=== PATIENT | male | born 1955 | race Caucasian/White ===

== ENCOUNTER → 2019-08-10 10:25 | Outpatient (CLI) | payer OTHER, MEDICARE, SELFPAY ==
--- NOTE | 2019-08-10 10:30 | CA_ITS ---
APPROVED REPORT EXAM: Comprehensive 2D, Doppler, and color-flow Echocardiogram Second Baller: Sharlene Wilcox RT(R) Ht: 6 ft 1 in Wt: 220lbs BSA: 2.24 BP: 136/76 mmHg Indications: Pre-Op Clearance, Aortic Valve Disease, Shortness of Breath, Hyperlipidemia, Cardiomyopathy, Hypertension/HDD, EDEMA, 2D Dimensions LVOT 1.92 cm (M/F) 1.5-2.5 M-Mode Dimensions RVDd 2.41 cm (0.9-2.6) LVDd 5.55 cm (3.5-5.7) LVDs 4.43 cm (3.5-5.7) IVSd 1.21 cm (0.6-1.1) PWd 1.13 cm (0.6-1.1) EF (Teich) 40.80% FS 20.20% EDV (Teich) 150.50 mL ESV (Teich) 89.10 mL LV Diastology E/A Ratio 0.69 Aortic Valve LVOT Max 78.00 (70-110 cm/s) LVOT VTI 15.46 cm Mitral Valve MV A Velocity 83.00 (40-130 cm/s) Left Ventricle Left atrium is mildly enlarged, left ventricle is normal size, mild concentric left ventricular hypertrophy, visually estimated ejection fraction 55% with no regional wall motion grade 1 diastolic dysfunction seen without tissue Doppler evidence of raise left atrial pressure. Right Ventricle Right atrium and right ventricular normal size and contractility. Aortic Valve Aortic valve is minimally thickened and fibrosed. Leaflet continue to display mobility, aortic outflow velocities within normal range, there is no aortic stenosis or aortic insufficiency. Mitral Valve Mitral valve is grossly normal, there is mild mitral regurgitation. Tricuspid Valve Tricuspid valve is grossly normal, there is mild tricuspid regurgitation, tricuspid regurgitation jet velocity is inadequate for calculation of the right ventricular systolic pressure. Pulmonic Valve Pulmonic valve is poorly visualized. Great Vessels Aortic root is normal size. Pericardium No significant pericardial effusion noted. Conclusion 1. Mildly enlarged left atrium, normal left ventricular size, mild concentric left ventricular hypertrophy, visually estimated ejection fraction 55% with no regional wall motion abnormality, diastolic parameters are inconclusive. 2. Thickened and calcified aortic valve without Doppler evidence of aortic stenosis. 3. Mild mitral and tricuspid regurgitation 4. No significant pericardial effusion noted. Electronically signed by : Petey Babin, 08/10/2019 21:18:44
== END ==
PROVIDERS: PCP Family Medicine; Visit Provider Nurse Practitioner Family
DX: I25.10 Atherosclerotic heart disease of native coronary artery without angina pectoris (principal); I11.0 Hypertensive heart disease with heart failure; E78.49 Other hyperlipidemia
CPT/HCPCS: 93306

== ENCOUNTER → 2020-01-07 13:34 | Outpatient (CLI) | payer BC, MEDICARE, SELFPAY ==
[2020-01-07 14:02] LABS: Alanine Aminotransferase 14 U/L (12-78); Albumin Level 4.2 g/dl (3.5-5.0); Albumin/Globulin Ratio 1.4 (1.1-1.8); Alkaline Phosphatase 64 U/L (38-126); Anion Gap 13.7 mEq/L (5-15); Aspartate Amino Transferase 38 U/L (17-59); Bilirubin,Total 0.3 mg/dl (0.2-1.3); Blood Urea Nitrogen 9 mg/dl (9-20); Calcium 9.4 mg/dl (8.4-10.2); Carbon Dioxide 27 mmol/L (22.0-30.0); Chloride 96 mmol/L (98-107); Chol/HDL Ratio 1.7 (1-3.5); Cholesterol 186 mg/dl (140-200); Estimated Glomerular Filt Rate 113 ml/min (>60); GFR (African American) 137 ML/MIN (>60); Glucose 84 mg/dl (74-100); HDL Cholesterol 107 mg/dl (40-60); Potassium 4.7 mmoL/L (3.5-5.1); Sodium 132 mmol/L (136-145); Total Protein,Serum 7.2 g/dl (6.3-8.2); Triglycerides 89 mg/dl (30-150); VLDL Cholesterol 18 mg/dL (0-40)
[2020-01-07 14:13] LABS: Direct LDL Cholesterol 64.46 mg/dL (100-129)
[2020-01-07 14:18] LABS: Basophils % 0.3 % (0.1-2.0); Eosinophils % 0.6 % (0.1-12.0); Hematocrit 40.5 % (42.0-52.0); Hemoglobin 13.4 g/dL (14.1-18.0); Lymphocytes # 1.1 K/mm3 (0.7-4.5); Lymphocytes % 18.9 % (10-50); Mean Corpuscular HGB Conc 33.2 g/dL (31.8-35.4); Mean Corpuscular Hemoglobin 30.1 pg (27.0-31.2); Mean Corpuscular Volume 90.8 fl (80-94); Mean Platelet Volume 7.8 fl (7.4-10.4); Monocytes # 0.3 K/mm3 (0.1-1.0); Neutrophils # 4.4 K/mm3 (1.8-7.8); Neutrophils % 75.2 % (37.0-80.0); Platelet Count 288 K/mm3 (142-424); Red Blood Count 4.47 M/mm3 (4.60-6.20); Red Cell Distribution Width 14.7 % (11.5-17.5); White Blood Count 5.8 K/mm3 (4.8-10.8)
== END ==
PROVIDERS: Visit Provider Family Medicine
DX: Z01.818 Encounter for other preprocedural examination (principal)
CPT/HCPCS: 80053; 80061; 85025

== ENCOUNTER → 2021-03-12 17:57 | Outpatient (CLI) | payer OTHER, MEDICARE, SELFPAY ==
[2021-03-12 19:22] LABS: Alanine Aminotransferase 12 U/L (12-78); Albumin Level 4.5 g/dl (3.5-5.0); Albumin/Globulin Ratio 1.4 (1.1-1.8); Alkaline Phosphatase 51 U/L (38-126); Anion Gap 14.6 mEq/L (5-15); Aspartate Amino Transferase 28 U/L (17-59); Bilirubin,Total 0.5 mg/dl (0.2-1.3); Blood Urea Nitrogen 10 mg/dl (9-20); Carbon Dioxide 23 mmol/L (22.0-30.0); Chloride 105 mmol/L (98-107); Estimated Glomerular Filt Rate 112 ml/min (>60); GFR (African American) 136 ML/MIN (>60); Globulin 3.3 g/dL (1.3-3.2); Glucose 74 mg/dl (74-100); Potassium 4.6 mmoL/L (3.5-5.1); Sodium 138 mmol/L (136-145); Total Protein,Serum 7.8 g/dl (6.3-8.2)
[2021-03-17 03:38] LABS: Testosterone, Total, LC/MS 554.7 ng/dL (264.0-916.0); Testosterone,Free 5.3 pg/mL (6.6-18.1)
== END ==
PROVIDERS: Visit Provider Family Medicine
DX: I10 Essential (primary) hypertension (principal); I48.91 Unspecified atrial fibrillation; E29.1 Testicular hypofunction; Z87.891 Personal history of nicotine dependence
CPT/HCPCS: 80053; 84402; 84403; 84443

== ENCOUNTER → 2021-08-07 09:59 | Outpatient (POV) | payer OTHER, MEDICARE, SELFPAY ==
[2021-08-07 10:29] VITALS: BP 158/89; PULSE 61; RESP 20; TEMP 36.7; O2SAT 98
--- NOTE | 2021-08-07 11:32 | HMH.PMCON ---
Assessment and Plan (1) Degenerative joint disease (DJD) of lumbar spine Status: Chronic Category: Medical Code(s): M47.816 - Spondylosis without myelopathy or radiculopathy, lumbar region (2) Lumbar radiculopathy Status: Chronic Category: Medical Code(s): M54.16 - Radiculopathy, lumbar region (3) Postlaminectomy syndrome of lumbar region Status: Chronic Category: Medical Code(s): M96.1 - Postlaminectomy syndrome, not elsewhere classified - Assessment and plan all Dx Assessment and Plan for all problems:: Patient was referred to us by Dr. Llamas office. He has had lumbar fusion with Dr. Llamas in 2020. He is having significant lower extremity pain with heaviness and weakness. He was referred to us for possible injective therapy per Dr. Llamas. We will schedule him for lumbar epidural steroid injection at L4-L5. He is not on any anticoagulation therapy. We will follow up with him after the injection for further evaluation. Possible side effects of corticosteroids have been discussed with the patient. He is not diabetic and is not on any anticoagulation therapy. Risks and benefits of the procedure have been explained to the patient. Patient would like to proceed with the procedure. Patient has been instructed to contact the clinic with any concerns before the next appointment. Dr. Ramírez has reviewed this note and agrees with this plan of care. This note was dictated using voice recognition software and make contain errors or omissions. HPI - Data of Consult Patient: new to practice Consult date: 08/07/21 Requesting Physician: Ivana Farooq APRN - Consult Narrative Reason for consult: Low back pain History of present illness: Mr. Keen is a 66 year old male who presents today for consultation for chronic low back pain. The patient has been seen by Dr. Llamas in the past for chronic low back pain. He has a lumbar fusion in [address] Llamas. Patient is complaining today of primarily bilateral lower extremity pain. He says that he is unable to stand for more than 5 minutes without developing severe pain. He is not able to walk more than 50 feet without having significant pain. He does have some low back pain, however, his symptoms are primarily bilateral lower extremity. The patient says that he would like to try injective therapy before proceeding with any further interventional therapies. He and I did discuss today that he is likely an intrathecal pump candidate given his symptoms and history of surgery, however, patient says he is not sure he wants to proceed with that type of treatment. He is not interested in opiates. Today, he does rate his pain an 8 out of 10. He does have imaging prior to surgical intervention. Dr. Ramírez has reviewed this note and agrees with this plan of care. This note was dictated using voice recognition software and make contain errors or omissions. MRI does show him to have a history of severe spinal stenosis. He has tried physical therapy in the past along with continued home stretching. The patient has also tried anti-inflammatories in the past. 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 He has had extensive physical therapy. He most recently was scheduled for physical therapy once again with Dr. Dyson. Dr. Llamas did recommend the patient undergo injective therapy. CC: Ivana aFrooq APRN [facility] History I have reviewed the patient's past medical history: Yes Medical History: Reports:: Arrhythmia, Atrial Fibrillation, Cardiomyopathy, Coronary Artery Disease, Hyperlipidemia, Hypertension, Internal Pacemaker Denies:: Cancer, Diabetes Mellitus Type 1, Diabetes Mellitus Type 2, MRSA *Have you ever received a pneumonia vaccine?: No *Have you received a flu vaccine this season?: No Other Medical History: Reports: Arthritis Laterality Cases: Right: Arthroscopy Shoulder, Bilateral: Total Knee Replacement Other Surgeries: Y
== END ==
PROVIDERS: Visit Provider Clinical Nurse Specialist Family Health
DX: M47.896 Other spondylosis, lumbar region (principal); M54.16 Radiculopathy, lumbar region; M96.1 Postlaminectomy syndrome, not elsewhere classified
CPT/HCPCS: 99202; G0463

== ENCOUNTER 2021-08-28 13:23 | Day surgery (SDC) | payer OTHER, MEDICARE, SELFPAY ==
[2021-08-28 13:33] VITALS: BP 151/93; BP 165/77; PULSE 57; PULSE 60; RESP 20; TEMP 36.8; O2SAT 100; O2SAT 96; BMI 29.8
[2021-08-28 13:52] VITALS: BP 170/70; PULSE 55; RESP 18; O2SAT 99
[2021-08-28 13:54] VITALS: BP 166/89; PULSE 67; RESP 18; O2SAT 99
--- NOTE | 2021-08-28 14:54 | HMH.PMPROC ---
- Procedure Date: 08/28/21 Time: 14:54 Anesthesiologist:: Kameron Ramírez MD Complications:: None Pre-procedure Diagnosis:: Degenerative disc disease of lumbar spine with lumbar radiculopathy symptoms and postlaminectomy syndrome lumbar spine Post-procedure Diagnosis:: Same Indications for Procedure:: This patient is a pleasant 66-year-old white male who has had previous laminectomy done by Dr. Llamas. He has increasing low back pain with radiation down both legs with heaviness and weakness. He has no lamina so is not a candidate for minimally invasive lumbar decompression however we will do a lumbar epidural steroid injection today to see if this gives him relief of his symptoms. Procedure Details:: Informed consent was obtained and the risk and benefits of the procedure was explained to the patient. The patient was taken to the procedure room. The patient was placed prone on the procedure table. The patient was prepped and draped in sterile fashion. C-arm fluoroscopy was used to view the lumbar spine. Skin and subcutaneous tissues were anesthetized using lidocaine. I placed an 18-gauge epidural needle and advanced into the L5-S1 interspace using fluoroscopic guidance and [id number] to air. After confirmation of needle placement in the epidural space with dye I injected 2 mL of lidocaine 1.5% with Depo-Medrol 80 mg. Patient tolerated the procedure well with no complications. Plan and Disposition:: We will follow-up with him in 2 weeks. Will reevaluate his symptoms at that time.
== END 2021-08-28 14:09 | disposition home or self-care (01) ==
PROVIDERS: PCP Family Medicine; Visit Provider Anesthesiology
DX: M51.16 Intervertebral disc disorders with radiculopathy, lumbar region (principal); M96.1 Postlaminectomy syndrome, not elsewhere classified; E78.5 Hyperlipidemia, unspecified; I48.91 Unspecified atrial fibrillation; I10 Essential (primary) hypertension; I34.0 Nonrheumatic mitral (valve) insufficiency; I25.10 Atherosclerotic heart disease of native coronary artery without angina pectoris; K21.9 Gastro-esophageal reflux disease without esophagitis; M19.90 Unspecified osteoarthritis, unspecified site; Z95.0 Presence of cardiac pacemaker
CPT/HCPCS: 62323; J1040; Q9966

== ENCOUNTER 2021-12-17 10:01 | Day surgery (SDC) | payer OTHER, MEDICARE, SELFPAY ==
[2021-12-13 12:09] VITALS: BMI 28.5
[2021-12-17 10:47] VITALS: BP 159/93; PULSE 60; RESP 16; O2SAT 99
[2021-12-17 11:17] VITALS: BP 151/73; PULSE 60; RESP 18; TEMP 36.3; O2SAT 100
--- NOTE | 2021-12-17 11:29 | PC.NURSE ---
16 fr catheter exp: 11/10/2022 lot: [id number]
--- NOTE | 2021-12-17 12:05 | P.OP_ITS ---
Date of procedure: 12/17/21 Pre-op Diagnosis:: Bladder dysfunction, incomplete bladder emptying Post-op Diagnosis:: Bladder dysfunction secondary to spinal cord injury Procedure performed:: Cystoscopy Surgeon:: Brandon Rosado MD Anesthesia: local Estimated blood loss (mL): 0 Clinical Note:: 66-year-old white male presents for urologic evaluation. He has history of spinal cord injury and is in rehab facility. He was at [facility] where his postvoid residuals were noted to be elevated in the currently has a chronic indwelling Damico for management. Operative findings:: Bladder shows some bullous edema from the Damico catheter. There is no evidence of chronic bladder outlet obstructive changes or an obstructing prostate. Operative note:: Patient taken to the cystoscopy suite after informed consent was obtained. On the stretcher he was prepped and draped in the standard surgical fashion after his Damico catheter was removed. 2% lidocaine placed into the urethra and allowed to sit for 5 minutes. A flexible cystoscope introduced into the urethral meatus. Passed into the bladder without difficulty. The bladder was examined in a systematic fashion. There was some bullous edema along the floor the bladder due to his chronic indwelling Damico. There is no evidence of cellules, diverticula or trabeculation. The ureteral orifices in their normal anatomic position with clear efflux of urine. The scope was retroflexed showing no evidence of a median lobe. Prostate was evaluated and showed no evidence of obstruction. The bulbar and anterior urethra was within normal limits as well. The scope removed and a 16 Welsh Damico catheter was replaced and 10 cc placed into the balloon. Patient tolerated procedure well. We discussed the findings today and he was reassured that his prostate does not seem to be the problem. His spinal cord injury is the likely cause of his incomplete bladder emptying and hopefully that will improve as his rehab progresses. Return to office as needed continue chronic indwelling Damico or intermittent self cath every 4-6 hours. Condition: stable Disposition: same day Specimens:: None Complications:: None
[2021-12-17 12:15] VITALS: BP 151/73; PULSE 60; RESP 18; O2SAT 100
== END 2021-12-17 12:15 | disposition home or self-care (01) ==
LOC: OUTP 10:03
PROVIDERS: PCP Family Medicine; Visit Provider Urology
PROC: (CPT 52000; principal; 2021-12-17 10:00)
DX: G95.89 Other specified diseases of spinal cord (principal); R33.8 Other retention of urine; N32.0 Bladder-neck obstruction; S14.109S Unspecified injury at unspecified level of cervical spinal cord, sequela; S12.9XXS Fracture of neck, unspecified, sequela
CPT/HCPCS: 52000

== ENCOUNTER → 2022-12-16 12:42 | Outpatient (CLI) | payer OTHER, MEDICARE, MEDICAID, SELFPAY ==
--- NOTE | 2022-12-16 12:56 | CA_ITS ---
FINAL REPORT TECHNIQUE: Quinones scale, color and spectral doppler images of the bilateral carotid arteries were obtained. CLINICAL HISTORY: JOANNE FINDINGS: Peak systolic velocity in the right internal carotid artery is 57 cm/sec. The internal carotid to common carotid artery ratio is 1.7. There is no significant carotid artery stenosis and no significant plaque formation. The right vertebral artery is normal in direction. Peak systolic velocity in the left internal carotid artery is 53 cm/sec. The internal carotid to common carotid artery ratio is 1.2. Mild plaque is seen on the left. There is no significant carotid artery stenosis and no significant plaque formation. The left vertebral artery is normal in direction. IMPRESSION: Mild plaque on the left with no ultrasound evidence of hemodynamically significant carotid artery stenosis. Normal peak systolic velocities and normal internal to common carotid artery ratios bilaterally. Reviewed, Interpreted and Dictated by Sherry Fritz MD Transcribed by Kia Zepeda Authenticated and [facility]
== END ==
PROVIDERS: PCP Family Medicine; Visit Provider Nurse Practitioner
DX: E78.2 Mixed hyperlipidemia (principal); I11.0 Hypertensive heart disease with heart failure; I25.10 Atherosclerotic heart disease of native coronary artery without angina pectoris; I34.0 Nonrheumatic mitral (valve) insufficiency; I35.9 Nonrheumatic aortic valve disorder, unspecified; I42.8 Other cardiomyopathies; I48.0 Paroxysmal atrial fibrillation; I50.32 Chronic diastolic (congestive) heart failure; I77.9 Disorder of arteries and arterioles, unspecified; R06.02 Shortness of breath; R53.83 Other fatigue; R60.9 Edema, unspecified; I65.23 Occlusion and stenosis of bilateral carotid arteries
CPT/HCPCS: 93306; 93880

== ENCOUNTER → 2023-02-14 23:17 | Outpatient (CLI) | payer OTHER, MEDICARE, MEDICAID, SELFPAY ==
[2023-02-14 18:01] LABS: MANUAL DIFFERENTIAL MANUAL DIFFERENTIAL (MANUAL DIFF)
[2023-02-14 18:30] LABS: Basophils % 0.1 % (0.1-2.0); Eosinophils % 0.7 % (0.1-12.0); Hematocrit 41.2 % (42.0-52.0); Hemoglobin 13.2 g/dL (14.1-18.0); Lymphocytes # 1.3 K/mm3 (0.7-4.5); Lymphocytes % 23.7 % (10-50); Mean Corpuscular Hemoglobin 28.3 pg (27.0-31.2); Mean Corpuscular Volume 88.4 fl (80-94); Mean Platelet Volume 8.5 fl (7.4-10.4); Monocytes # 0.4 K/mm3 (0.1-1.0); Neutrophils # 3.8 K/mm3 (1.8-7.8); Neutrophils % 68.5 % (37.0-80.0); Platelet Count 287 K/mm3 (142-424); Red Blood Count 4.66 M/mm3 (4.60-6.20); Red Cell Distribution Width 15.6 % (11.5-17.5); White Blood Count 5.5 K/mm3 (4.8-10.8)
[2023-02-14 19:03] LABS: Alanine Aminotransferase 15 U/L (12-78); Albumin Level 4.1 g/dl (3.5-5.0); Albumin/Globulin Ratio 1.2 (1.1-1.8); Alkaline Phosphatase 73 U/L (38-126); Anion Gap 13.5 mEq/L (5-15); Aspartate Amino Transferase 24 U/L (17-59); Bilirubin,Total 0.3 mg/dl (0.2-1.3); Blood Urea Nitrogen 10 mg/dl (9-20); Calcium 9.1 mg/dl (8.4-10.2); Carbon Dioxide 30 mmol/L (22.0-30.0); Chloride 100 mmol/L (98-107); Estimated Glomerular Filt Rate 133 ml/min (>60); GFR (African American) 161 ML/MIN (>60); Globulin 3.4 g/dL (1.3-3.2); Glucose 99 mg/dl (74-100); Magnesium 2.2 mg/dl (1.6-2.3); Potassium 4.5 mmoL/L (3.5-5.1); Sodium 139 mmol/L (136-145); Total Protein,Serum 7.5 g/dl (6.3-8.2)
[2023-02-14 20:18] LABS: Eosinophils % 1 % (0-3); Lymphocytes % 23 % (10-50); Monocytes % 5 % (2-9); Neutrophils % 71 % (42-76); Platelet Estimate Normal; RBC Morphology Normal; Total Cells Counted 100
== END ==
PROVIDERS: PCP Family Medicine; Visit Provider Family Medicine
DX: R53.83 Other fatigue (principal)
CPT/HCPCS: 80053; 83735; 85007; 85014; 85018; 85048; 85049

== ENCOUNTER → 2023-05-06 15:08 | Outpatient (CLI) | payer OTHER, MEDICARE, MEDICAID, SELFPAY ==
--- NOTE | 2023-05-06 15:09 | CA_ITS ---
APPROVED REPORT EXAM: Comprehensive 2D, Doppler, and color-flow Echocardiogram User Experience Researcher: Aem Morris RDCS Ht: 6 ft 0 in Wt: 215lbs BSA: 2.20 BP: 108/73 mmHg Indications: CM,AF,PREOP SHOULDER TDS PT IMMOBILE IN WHEELCHAIR 2D Dimensions LVOT 2.51 cm (M/F) 1.5-2.5 M-Mode Dimensions RVDd 2.82 cm (0.9-2.6) LA Diam 3.59 cm (1.9-4.0) LVDd 4.51 cm (3.5-5.7) Ao Diam 3.59 cm (2.0-3.7) LVDs 3.66 cm (3.5-5.7) IVSd 0.93 cm (0.6-1.1) PWd 0.68 cm (0.6-1.1) EF (Teich) 39.10% FS 18.80% EDV (Teich) 92.90 mL ESV (Teich) 56.60 mL LV Diastology E Decel Time 257.00 (160-240 msec) E/A Ratio 0.5 MED E' 5.40 (< 7 cm/sec) E'/MED E' Ratio 6.43 (>14) LAT E' 6.00 (<10 cm/sec) E/LAT E' Ratio 5.78 (>14) Aortic Valve LVOT Max 134.00 (70-110 cm/s) LVOT VTI 21.43 cm AoV Peak Christiano. 149.00 (50-130 cm/s) AO Peak GR. 8.90 mmHg AO Mean GR. 4.40 (<5 mmHg) AO VTI 21.31 (18-25 cm) JUVENAL (VTI) 4.98 (2.5-4.5 cm2) Mitral Valve MV E Max Christiano. 35.00 (40-130 cm/s) MV A Velocity 71.00 (40-130 cm/s) E/A Ratio 0.49 MV Decel. Time 257.00 (160-240 ms) MV PHT 75.00 ms Left Ventricle The left ventricle is normal size. The left ventricular systolic function is normal. The left ventricular ejection fraction is within the normal range. There is increased LV wall thickness. There is normal LV segmental wall motion. The left ventricular diastolic function is normal. LVEF is 65%. Right Ventricle The right ventricle is mildly dilated. The right ventricular systolic function is normal. Atria The left atrium size is normal. The right atrium size is normal. There is no Doppler evidence of interatrial shunt. Aortic Valve The aortic valve is mildly thickened. There is no aortic valvular stenosis. No aortic regurgitation is present. Mitral Valve The mitral valve leaflets are mildly thickened. No evidence of mitral valve stenosis. Trace mitral regurgitation. Tricuspid Valve The tricuspid valve leaflets are thin and pliable. Trace tricuspid regurgitation. There is insufficient TR jet to estimate RVSP. Pulmonic Valve The pulmonary valve is normal in structure. Trace pulmonic regurgitation. Great Vessels The aortic root is normal in size. The ascending aorta is not well visualized. The IVC is not well-visualized. Pericardium Trivial pericardial effusion. Other Information Study Quality: Technically Difficult Conclusion This was a technically difficult study due to patient positioning. Normal biventricular systolic function. Mildly dilated RV. Electronically signed by : Eliza Sanchez MD 05/07/2023 21:03:45
== END ==
PROVIDERS: PCP Family Medicine; Visit Provider Physician Assistant
DX: I25.10 Atherosclerotic heart disease of native coronary artery without angina pectoris (principal); I11.0 Hypertensive heart disease with heart failure; I34.0 Nonrheumatic mitral (valve) insufficiency; I42.9 Cardiomyopathy, unspecified; I48.91 Unspecified atrial fibrillation; E78.5 Hyperlipidemia, unspecified; Z87.891 Personal history of nicotine dependence; I50.32 Chronic diastolic (congestive) heart failure
CPT/HCPCS: 93306

== ENCOUNTER → 2023-05-21 12:47 | Outpatient (CLI) | payer OTHER, MEDICARE, MEDICAID, SELFPAY ==
--- NOTE | 2023-05-21 | CA_ITS ---
APPROVED REPORT Exam: Pharmacologic Technologist: Clarice Morris, Ht: 6 ft 0 in Wt: 215 lbs BSA: 2.20 m2 HR: 60 bpm BP: 104/64 mmHg Rhythm: AV-paced Medical History Medical History: HTN, Hyperlipidemia Medications: Amlodipine,,,,, Gabapentin,,,,, TAMSULOSIN,,,,, B12,,,,, DulOXETINE,,,,, Vit C,,,,, MeLATONIN,,,,, Mirtazapine,,,,, Methocarbamol,,,,, Bisacodyl,,,,, EnTRESTO,,,,, PantoprazLE,,,,, Allergies: No known drug allergies Cardiac Risk Factors: HTN, Hyperlipidemia, Smoking Stress Test Details Test: LEXISCAN HR Resting HR: 60 bpm Max Heart Rate (APMHR): 150 bpm Max HR Achieved: 79 bpm Target HR (85% APMHR): 128 bpm % of APMHR: 53 Recovery HR: 64 bpm BP Resting BP: 106.0/64.0 mmHg Max BP: 106.0/64.0 mmHg Recovery BP: 92.0/52.0 mmHg ECG Resting ECG: A-V sequential paced rhythm,T wave abns. Stress ECG: No significant ST changes Arrhythmia: PVCs Clinical Exercise duration: 04:17 min Highest Stage Achieved: Exercise capacity: 1.0 METs Stress ECG Conclusion During infusion patient had no symptoms. PVCs were present. No significant ST-T changes. Conclusion: Unremarkable lexiscan stress. Myoview images reported separately. Test Summary REST . . . . . . . Sitting REST 04:07 . . 60 . 106/ 64 . . Stage 1 . . . . . . . Myoview Injected Stage 1 01:00 . . 69 . . . . Stage 2 01:00 . . 75 . 93/ 48 . . Stage 3 01:00 . . 70 . 96/ 51 . . Stage 4 01:00 . . 67 . 86/ 51 . . Stage 4 01:17 . . 64 . 86/ 51 . Stop exercise at 04:17 RECOVERY 01:00 . . 63 . . . . RECOVERY 02:00 . . 63 . . . . RECOVERY 03:00 . . 63 . . . . RECOVERY 04:00 . . 70 . . . . RECOVERY 05:00 . . 63 . . . . RECOVERY 05:16 . . 65 . 98/ 59 . . Electronically signed by : Eliza Sanchez MD 05/29/2023 13:35:44
--- NOTE | 2023-05-21 12:48 | NM_ITS ---
APPROVED REPORT Exam: Nuclear Stress Test Indication: CAD, CARDIOMYOPATHY, SOB, FORMER SMOKER, ABN EKG, EDEMA Patient Location: Outpatient Stress Tech: Juliane Banda MS Tech:DEBORA Silverio RT (R)(N)(M) Ht: 6 ft 1 in Wt: 215 lbs HR: 60 bpm BP: 106/64 mmHg BSA: 2.22 m2 Rhythm: AV paced TID: 1.23 BMI: 28.3 History: CAD, CARDIOMYOPATHY, SOB, FORMER SMOKER, ABN EKG, EDEMA PT COULD NOT LAY ON STOMACH FOR PRONE IMAGES Procedure: Patient received 0.4 mg of intravenous Lexiscan, resting heart rate 60 bpm, resting blood pressure 106/64 mmHg, with Lexiscan maximum heart rate achieved was 79 bpm which is % of the maximum predicted heart rate and blood pressure was 106/64 mmHg. With Lexiscan, patient denied any complaint of chest pain. Cardiac Stress and Resting SPECT Images: Cardiac Stress and Resting SPECT images were obtained using technetium 99m Myoview 31.0 mCi stress and 10.24 mCi at rest. The patient could not lie on his abdomen. Therefore, prone stress imaging could not be performed. This may affect the diagnostic interpretation of the study findings. Resting and stress imaging in supine position demonstrate medium sized, severe, fixed perfusion defect in the basal to mid inferior LV wall. There is increased transient ischemic dilatation ratio (TID 1.23), suggestive of possible multivessel disease or balanced ischemia. Gated imaging demonstrates low normal global LV systolic function. There is moderate hypokinesis of the basal to mid inferior LV wall. LVEF is calculated at 50%. Conclusion: Medium sized, severe, fixed perfusion defect in the basal to mid inferior LV wall. No evidence of reversible ischemia. There is increased transient ischemic dilatation ratio (TID 1.23), suggestive of possible multivessel disease or balanced ischemia. Gated imaging demonstrates low normal global LV systolic function. There is moderate hypokinesis of the basal to mid inferior LV wall. LVEF is calculated at 50%. Electronically signed by : Eliza Sanchez MD 05/29/2023 13:37:42
== END ==
LOC: RAD 12:48
PROVIDERS: PCP Family Medicine; Visit Provider Nurse Practitioner
DX: R94.31 Abnormal electrocardiogram [ECG] [EKG] (principal); Z87.891 Personal history of nicotine dependence
CPT/HCPCS: 78452; 93017; 93018; A9502; J2785

== ENCOUNTER 2023-06-16 09:09 | Day surgery (SDC) | payer OTHER, MEDICARE, MEDICAID, SELFPAY ==
[2023-06-16] VITALS (9 sets, daily range): BP systolic 112–133; BP diastolic 67–83; PULSE 60–64; RESP 16–20; O2SAT 96–100; BMI 28.5
--- NOTE | 2023-06-16 07:19 | IR_ITS ---
APPROVED REPORT Patient Location: Outpatient Link Cutter: DEBORA Conte RT (R) PROCEDURES Left heart catheterization Left ventriculogram Selective coronary angiogram INDICATION Abnormal Myoview, Preoperative evaluation Informed consent was obtained prior to the procedure. COMPLICATIONS None Estimated Blood Loss: Less than 10 mls TECHNIQUE One percent lidocaine used to anesthetize the right anterior aspect of the wrist. The right radial artery was accessed via the Seldinger technique. A 6 Sinhala sheath was placed in the right radial artery. 2.5 mg of Verapamil, 800 mcg of nitroglycerin, 1mg Lidocaine and 5000 U Heparin were given through the arterial sheath. The papa catheter was also used to perform left heart catheterization, left ventriculogram and selective coronary angiogram. At the end of the procedure the sheath was removed good hemostasis was achieved using Traclet band, patient was transferred to the postop holding area in stable condition. ANGIOGRAPHIC RESULTS The left main artery Mild 10% luminal irregularity The left anterior descending artery Has mild proximal vascular ectasia with 10% luminal irregularity followed by mid vessel 20% and 30% stenoses. Distally there were 30 and 40% stenoses as the LAD wraps the apex. A large first diagonal artery has 20% stenoses proximally with a 70 to 80% stenosis and a 1 mm branch off the first diagonal artery. The circumflex artery Is nondominant gives rise to a moderate to large ramus intermedius which has a proximal eccentric 40 to 50% stenosis. The circumflex artery has 10 to 20% stenoses in the first obtuse marginal artery and 50% stenosis in a small 1.5 mm second obtuse marginal artery The right coronary artery Is a large dominant vessel and has a proximal 40 to 50% stenosis with distal concentric 40% stenosis distal to the stent and immediately proximal to a large bifurcating posterior lateral branch The HERNANDEZ ventriculogram reveals Preserved 60% The left ventricular end-diastolic pressure 10 mmHg IMPRESSION Mild to moderate coronary disease in the major 3 blood vessels as described above Moderate to severe disease in small side branches which are too small for percutaneous intervention Normal ejection fraction Normal left ventricular diastolic pressure PLAN 1. Continue medical management 2. Aggressive risk factor modification 3. Patient is alone acceptable risk to proceed with elective shoulder surgery Electronically signed by : Vicente Velez MD 06/16/2023 11:32:59
[2023-06-16 10:01] LABS: Chloride 99 mmol/L (98-107); Potassium 4.2 mmoL/L (3.5-5.1); Sodium 134 mmol/L (136-145)
[2023-06-16 10:03] LABS: Basophils % 0.2 % (0.1-2.0); Eosinophils % 0.6 % (0.1-12.0); Hemoglobin 13.9 g/dL (14.1-18.0); Lymphocytes # 1.1 K/mm3 (0.7-4.5); Lymphocytes % 22.4 % (10-50); Mean Corpuscular HGB Conc 32.4 g/dL (31.8-35.4); Mean Corpuscular Hemoglobin 31.2 pg (27.0-31.2); Mean Corpuscular Volume 96.2 fl (80-94); Mean Platelet Volume 8.7 fl (7.4-10.4); Monocytes # 0.5 K/mm3 (0.1-1.0); Monocytes % 9.3 % (1.7-9.3); Neutrophils # 3.4 K/mm3 (1.8-7.8); Neutrophils % 67.4 % (37.0-80.0); Platelet Count 216 K/mm3 (142-424); Red Blood Count 4.47 M/mm3 (4.60-6.20); Red Cell Distribution Width 13.3 % (11.5-17.5); White Blood Count 5.1 K/mm3 (4.8-10.8)
[2023-06-16 10:04] LABS: Anion Gap 8.2 mEq/L (5-15); Blood Urea Nitrogen 13 mg/dl (9-20); Calcium 8.6 mg/dl (8.4-10.2); Carbon Dioxide 31 mmol/L (22.0-30.0); Creatinine Clearance Estimated 93 mL/min (50-200); Estimated Glomerular Filt Rate 111 ml/min (>60); GFR (African American) 135 ML/MIN (>60); Glucose 88 mg/dl (74-100)
== END 2023-06-16 14:36 | disposition home or self-care (01) ==
PROVIDERS: PCP Family Medicine; Visit Provider Internal Medicine
DX: I11.0 Hypertensive heart disease with heart failure (principal); E78.5 Hyperlipidemia, unspecified; I25.10 Atherosclerotic heart disease of native coronary artery without angina pectoris; I42.9 Cardiomyopathy, unspecified; R94.30 Abnormal result of cardiovascular function study, unspecified; I77.9 Disorder of arteries and arterioles, unspecified; Z79.899 Other long term (current) drug therapy; Z87.891 Personal history of nicotine dependence; I50.20 Unspecified systolic (congestive) heart failure
CPT/HCPCS: 80048; 85025; 93458; 99152; C1725; C1769; J1644; Q9967

== ENCOUNTER 2023-08-25 21:41 | Outpatient (CLI) | payer OTHER, MEDICARE, MEDICAID, SELFPAY ==
[2023-08-25 18:54] LABS: Basophils % 0.2 % (0.1-2.0); Eosinophils % 0.8 % (0.1-12.0); Hemoglobin 13.8 g/dL (14.1-18.0); Lymphocytes # 0.8 K/mm3 (0.7-4.5); Mean Corpuscular HGB Conc 32.7 g/dL (31.8-35.4); Mean Corpuscular Hemoglobin 30.9 pg (27.0-31.2); Mean Corpuscular Volume 94.6 fl (80-94); Mean Platelet Volume 8.4 fl (7.4-10.4); Monocytes # 0.3 K/mm3 (0.1-1.0); Monocytes % 5.8 % (1.7-9.3); Neutrophils # 4.1 K/mm3 (1.8-7.8); Neutrophils % 78.2 % (37.0-80.0); Platelet Count 202 K/mm3 (142-424); Red Blood Count 4.45 M/mm3 (4.60-6.20); Red Cell Distribution Width 13.7 % (11.5-17.5); White Blood Count 5.3 K/mm3 (4.8-10.8)
[2023-08-25 19:08] LABS: Alanine Aminotransferase 14 U/L (12-78); Albumin Level 3.8 g/dl (3.5-5.0); Albumin/Globulin Ratio 1.4 (1.1-1.8); Alkaline Phosphatase 56 U/L (38-126); Anion Gap 7.4 mEq/L (5-15); Aspartate Amino Transferase 23 U/L (17-59); Bilirubin,Total 0.4 mg/dl (0.2-1.3); Blood Urea Nitrogen 12 mg/dl (9-20); Calcium 8.7 mg/dl (8.4-10.2); Carbon Dioxide 31 mmol/L (22.0-30.0); Chloride 101 mmol/L (98-107); Chol/HDL Ratio 2.1 (1-3.5); Cholesterol 214 mg/dl (140-200); Estimated Glomerular Filt Rate 111 ml/min (>60); GFR (African American) 135 ML/MIN (>60); Globulin 2.8 g/dL (1.3-3.2); Glucose 92 mg/dl (74-100); HDL Cholesterol 102 mg/dl (40-60); Potassium 4.4 mmoL/L (3.5-5.1); Sodium 135 mmol/L (136-145); Total Protein,Serum 6.6 g/dl (6.3-8.2); Triglycerides 45 mg/dl (30-150); VLDL Cholesterol 9 mg/dL (0-40)
[2023-08-25 19:20] LABS: Direct LDL Cholesterol 58.13 mg/dL (100-129)
[2023-08-25 19:43] LABS: Prostate Specific Ag Screen 0.6 ng/ml (0.0-4.0); Thyroid Stimulating Hormone 1.01 uIU/mL (0.465-4.68)
== END 2023-08-25 23:59 ==
LOC: LAB.DROPOF 21:41
PROVIDERS: PCP Family Medicine; Visit Provider Family Medicine
DX: Z00.00 Encounter for general adult medical examination without abnormal findings (principal); Z79.899 Other long term (current) drug therapy; Z12.5 Encounter for screening for malignant neoplasm of prostate
CPT/HCPCS: 80053; 80061; 84443; 85025; G0103

== ENCOUNTER 2023-12-10 11:17 | Outpatient (CLI) | payer OTHER, MEDICARE, MEDICAID, SELFPAY ==
[2023-12-10 19:49] LABS: Alanine Aminotransferase 12 U/L (12-78); Albumin Level 3.8 g/dl (3.5-5.0); Albumin/Globulin Ratio 1.3 (1.1-1.8); Alkaline Phosphatase 64 U/L (38-126); Anion Gap 13.3 mEq/L (5-15); Aspartate Amino Transferase 25 U/L (17-59); Bilirubin,Total 0.6 mg/dl (0.2-1.3); Blood Urea Nitrogen 11 mg/dl (9-20); Carbon Dioxide 29 mmol/L (22.0-30.0); Chloride 100 mmol/L (98-107); Estimated Glomerular Filt Rate 133 ml/min (>60); GFR (African American) 161 ML/MIN (>60); Globulin 2.9 g/dL (1.3-3.2); Glucose 73 mg/dl (74-100); Potassium 4.3 mmoL/L (3.5-5.1); Sodium 138 mmol/L (136-145); Total Protein,Serum 6.7 g/dl (6.3-8.2)
[2023-12-12 10:03] LABS: Vitamin B12 397 pg/mL (239-931)
[2023-12-15 03:51] LABS: Testosterone, Total, LC/MS 213 ng/dL (.)
== END 2023-12-10 23:59 | disposition home or self-care (01) ==
LOC: LAB.DROPOF 12-11 11:17
PROVIDERS: PCP Family Medicine; Visit Provider Family Medicine
DX: R53.83 Other fatigue (principal); E78.2 Mixed hyperlipidemia; I11.0 Hypertensive heart disease with heart failure; E53.8 Deficiency of other specified B group vitamins; E29.1 Testicular hypofunction
CPT/HCPCS: 80053; 82607; 84403

== ENCOUNTER 2024-06-14 16:30 | Outpatient (CLI) | payer OTHER, MEDICAID, MEDICARE, SELFPAY ==
[2024-06-14 18:36] LABS: Basophils % 0.8 % (0.1-2.0); Eosinophils # 0.1 K/mm3 (0.0-0.4); Eosinophils % 1.5 % (0.1-12.0); Hematocrit 39.6 % (42.0-52.0); Hemoglobin 12.5 g/dL (14.1-18.0); Lymphocytes # 1.2 K/mm3 (0.7-4.5); Lymphocytes % 25.1 % (10-50); Mean Corpuscular HGB Conc 31.5 g/dL (31.8-35.4); Mean Corpuscular Hemoglobin 26.9 pg (27.0-31.2); Mean Corpuscular Volume 85.5 fl (80-94); Mean Platelet Volume 8.4 fl (7.4-10.4); Monocytes # 0.3 K/mm3 (0.1-1.0); Monocytes % 6.4 % (1.7-9.3); Neutrophils # 3.2 K/mm3 (1.8-7.8); Neutrophils % 66.3 % (37.0-80.0); Platelet Count 251 K/mm3 (142-424); Red Blood Count 4.63 M/mm3 (4.60-6.20); Red Cell Distribution Width 15.3 % (11.5-17.5); White Blood Count 4.8 K/mm3 (4.8-10.8)
[2024-06-14 21:11] LABS: Alanine Aminotransferase 9 U/L (12-78); Albumin Level 3.2 g/dl (3.5-5.0); Albumin/Globulin Ratio 1.2 (1.1-1.8); Alkaline Phosphatase 47 U/L (38-126); Anion Gap 8.4 mEq/L (5-15); Aspartate Amino Transferase 16 U/L (17-59); Bilirubin,Total 0.4 mg/dl (0.2-1.3); Blood Urea Nitrogen 8 mg/dl (9-20); Carbon Dioxide 28 mmol/L (22.0-30.0); Chloride 105 mmol/L (98-107); Estimated Glomerular Filt Rate 111 ml/min (>60); GFR (African American) 135 ML/MIN (>60); Globulin 2.6 g/dL (1.3-3.2); Glucose 96 mg/dl (74-100); Potassium 4.4 mmoL/L (3.5-5.1); Sodium 137 mmol/L (136-145); Total Protein,Serum 5.8 g/dl (6.3-8.2)
[2024-06-14 21:42] LABS: Thyroid Stimulating Hormone 1.06 uIU/mL (0.465-4.68)
== END 2024-06-14 23:59 | disposition home or self-care (01) ==
LOC: LAB.DROPOF 06-15 15:30
PROVIDERS: PCP Family Medicine; Visit Provider Family Medicine
DX: S14.109A Unspecified injury at unspecified level of cervical spinal cord, initial encounter (principal)
CPT/HCPCS: 80050; 80053; 84443; 85025

== ENCOUNTER 2025-03-16 08:08 | Day surgery (SDC) | payer OTHER, MEDICARE, MEDICAID, SELFPAY ==
--- NOTE | 2025-03-15 07:54 | EXP.HP ---
History of Present Illness *Admission Date: 03/16/25 *History of present illness: Mr. Mckinnon is a 70-year-old gentleman who is here for screening colonoscopy. The examination is deemed medically necessary for screening colonoscopy. The patient has been seen, interviewed and examined prior to the procedure by both myself and the anesthesia provider. [facility] Disclaimer: The information contained in this section may have been updated after the patient was seen, as this information can be updated by other users. Medical History (Updated 03/16/25 @ 14:19 by Rissa Araiza RN) Damico catheter in place Anxiety and depression Hypertension History of pacemaker History of femur fracture Preop cardiovascular exam Hx of colonic polyp Cervical spinal cord injury Abnormal result of cardiovascular function study Coronary artery disease Carotid artery disease Edema Cardiomyopathy Edema SOB (shortness of breath) Surgical History (Updated 03/16/25 @ 14:19 by Rissa Araiza RN) Hx of total knee replacement Hx of neck surgery Family History (Updated 03/16/25 @ 14:19 by Rissa Araiza RN) Other No significant family history Social History (Updated 03/16/25 @ 14:21 by Rissa Araiza RN) Smoking Status: Former smoker alcohol intake: current alcohol intake frequency: holidays/special occasions only substance use type: denies use current occupational status: disabled Travel in the last 8 weeks?: None household members: spouse housing: house current occupational exposures/hazards: No caffeine: Yes Have you lived/traveled outside [place] in past 30 days?: No Contact w/someone who lives/traveled outside [place] past 30 days?: No Exposure to someone with infectious disease in past 14 days?: No Do you have a fever (greater than 100.4 F or 38 C)?: No Have you tested positive for COVID-19?: No Exposed to someone with COVID-19 in past 14 days?: No Do you have a sore throat?: No Do you have a cough?: No Do you have any weakness?: No Are you experiencing any nausea/vomitting?: No Do you have any diarrhea?: No Are you experiencing any unusual bleeding?: No Do you have any muscle aches/pain?: No Do you have any abdominal pain?: No Are you experiencing loss of taste or smell?: No Other Medical History Have you received the Flu Vaccine for this season: Yes Have you received the Pneumonia Vaccine: Yes Review of Systems Review of Systems Review of systems (narrative): Negative *Cardiovascular Comments: Negative *Gastrointestinal Comments: Negative *Genitourinary Comments: Negative *Musculoskeletal Comments: Negative *Neurologic Comments: Negative Meds Home Medications and Allergies Home Medications ?Medication ?Instructions ?Recorded ?Confirmed ?Type ibuprofen 800 mg tablet 800 mg PO Q8H #90 tabs 07/31/23 03/08/25 Rx diphenoxylate-atropine 2.5 1 tab PO TID PRN diarrhea #30 tabs 05/20/24 03/08/25 Rx mg-0.025 mg tablet (Lomotil) testosterone cypionate 200 mg/mL 200 mg IM QWEEK #10 mL 10/08/24 03/08/25 Rx intramuscular oil (Depo-Testosterone) syringe with needle 3 mL 21 gauge #25 ea 10/11/24 03/08/25 Rx x 1 1/2 (Syringe) amlodipine 5 mg tablet (Norvasc) 5 mg PO DAILY #90 tabs 11/29/24 03/08/25 Rx ascorbic acid (vitamin C) 500 mg 500 mg PO BID 90 days #180 caps 11/29/24 03/08/25 Rx capsule bisacodyl 5 mg tablet,delayed 5 mg PO HS bowels #90 tabs 11/29/24 03/08/25 Rx release cholestyramine (with sugar) 4 gram 4 g PO DAILY #378 grams 11/29/24 03/08/25 Rx oral powder (Questran) cyanocobalamin (vitamin B-12) 1,000 mcg IM WEEKLY #30 mL 11/29/24 03/08/25 Rx 1,000 mcg/mL injection solution desvenlafaxine succinate 50 mg 50 mg PO DAILY #90 tabs 11/29/24 03/08/25 Rx tablet,extended release 24 hr (Pristiq) diclofenac sodium 1 % topical gel 2 g topical QID #100 grams 11/29/24 03/08/25 Rx (Voltaren Arthritis Pain) duloxetine 60 mg capsule,delayed 60 mg PO DAILY Pain #90 caps 11/29/24 03/08/25 Rx release melatonin 5 mg capsule 5 mg PO DAILY sleep #90 caps 11/29/24 03/08/25 Rx methenamine hippurate 1 gram tablet 1 g PO BID . #60 tabs 11/29/24 03/08/25 Rx methocarbamol 500 mg tablet 500 mg PO TID Pain #270 tabs 11/29/24 03/08/25 Rx mirtazapine 15 mg tablet 15 mg PO HS . #90 tabs 11/29/24 03/08/25 Rx ondansetron HCl 4 mg tablet 4 mg PO TID PRN nausea and 11/29/24 03/08/25 Rx vomiting #90 tabs oxybutynin chloride 5 mg tablet 5 mg PO DAILY prostate #90 tabs 11/29/24 03/08/25 Rx pantoprazole 40 mg tablet,delayed 40 mg PO DAILY #90 tabs 11/29/24 03/08/25 Rx release (Protonix) polyethylene glycol 3350 17 8.5 g PO DAILY PRN constipation 11/29/24 03/08/25 Rx gram/dose oral powder (Miralax) #238 grams rivaroxaban 20 mg tablet (Xarelto) 20 mg PO DAILY #30 tabs 11/29/24 03/08/25 Rx sacubitril 24 mg-valsartan 26 mg 1 tab PO BID #60 tabs 11/29/24 03/08/25 Rx tablet (Entresto) sennosides 8.6 mg-docusate sodium 1 tab-cap PO HS bowels #90 tabs 11/29/24 03/08/25 Rx 50 mg tablet (Stimulant Laxative Plus) tamsulosin 0.4 mg capsule 0.4 mg PO DAILY #90 caps 11/29/24 03/08/25 Rx gabapentin 600 mg tablet 600 mg PO TID PRN pain #90 tabs 11/30/24 03/08/25 Rx oxycodone 5 mg tablet 5 mg PO DAILY PRN pain #30 tabs 11/30/24 03/08/25 Rx sulfamethoxazole 800 1 tab PO BID #20 tabs 01/03/25 03/08/25 Rx mg-trimethoprim 160 mg tablet (Bactrim DS) sodium,potassium,mag sulfates 17.5 See Rx Instructions PO .COMPLEX 03/02/25 03/08/25 Rx gram-3.13 gram-1.6 gram oral soln #354 mL (Suprep Bowel Prep Kit) New Prescriptions to Start Prescriptions: Allergies Allergy/AdvReac Type Severity Reaction Status Date / Time No Known Allergies Allergy Verified 03/16/25 14:09 Exam *Routine HEENT Exam Head: Present normocephalic Eye: Present EOMI and PERRL ENT: Present mucous membranes moist *Routine Neck Exam Neck: Present supple *Routine Respiratory Exam Respiratory: Present CTA bilaterally *Routine Cardiovascular Exam Cardiovascular: Present RRR *Routine Abdominal Exam Abdominal: Present soft and normoactive bowel sounds; Absent tenderness *Routine Rectal Exam Rectal:: deferred *Routine Genitalia Exam Genitalia:: deferred *Routine Extremities Exam Extremities: Absent cyanosis, clubbing or edema *Routine Skin Exam Skin: Present warm; Absent rash *Routine Neurological Exam Neurological: Present alert and oriented X3 Assessment and Plan *Assessment and plan (1) Screening for colon cancer: Status: Acute Category: Medical Code(s): Z12.11 - Encounter for screening for malignant neoplasm of colon (2) Personal history of colon polyps, unspecified: Status: Acute Category: Medical Code(s): Z86.0100 - Personal history of colon polyps, unspecified Plan A/P: 1. Screening for colon cancer with personal history of colon polyps is the preprocedural diagnosis. The patient will be anesthetized/sedated using MAC sedation. The patient has been seen and examined. Cardiac and lung assessment prior to the examination is stable. Proceed with planned screening colonoscopy.
[2025-03-16 14:22] VITALS: BP 155/85; PULSE 57; RESP 18; TEMP 36.3; O2SAT 98; BMI 27.1
--- NOTE | 2025-03-16 14:26 | P.PNANES_ITS ---
[facility] Disclaimer: The information contained in this section may have been updated after the patient was seen, as this information can be updated by other users. Medical History (Updated 03/16/25 @ 14:19 by Rissa Araiza RN) Damico catheter in place Anxiety and depression Hypertension History of pacemaker History of femur fracture Preop cardiovascular exam Hx of colonic polyp Cervical spinal cord injury Abnormal result of cardiovascular function study Coronary artery disease Carotid artery disease Edema Cardiomyopathy Edema SOB (shortness of breath) Surgical History (Updated 03/16/25 @ 14:19 by Rissa Araiza RN) Hx of total knee replacement Hx of neck surgery Family History (Updated 03/16/25 @ 14:19 by Rissa Araiza RN) Other No significant family history Social History (Updated 03/16/25 @ 14:21 by Rissa Araiza RN) Smoking Status: Former smoker alcohol intake: current alcohol intake frequency: holidays/special occasions only substance use type: denies use current occupational status: disabled Travel in the last 8 weeks?: None household members: spouse housing: house current occupational exposures/hazards: No caffeine: Yes Have you lived/traveled outside [place] in past 30 days?: No Contact w/someone who lives/traveled outside [place] past 30 days?: No Exposure to someone with infectious disease in past 14 days?: No Do you have a fever (greater than 100.4 F or 38 C)?: No Have you tested positive for COVID-19?: No Exposed to someone with COVID-19 in past 14 days?: No Do you have a sore throat?: No Do you have a cough?: No Do you have any weakness?: No Are you experiencing any nausea/vomitting?: No Do you have any diarrhea?: No Are you experiencing any unusual bleeding?: No Do you have any muscle aches/pain?: No Do you have any abdominal pain?: No Are you experiencing loss of taste or smell?: No [facility] Anesthesia Checklist Patient Identification Patient Identification: Arm Band Structural Data Admitted From: Home Planned Operative Procedure/s: Colonoscopy Consent for Planned Operative Procedure(s) Verified: Yes Verified Documents: Surgical Consent and History and Physical NPO Status Verified Time NPO: 09:00 (chewing tobacco (Dip)) Additional verifications Anesthesia Reactions: No Airway Assessment Mallampati Score:: Class II C-Spine Mobility Assessed: Yes TMJ Mobility Assessed: Yes Dentition: Good Dentition Neurological Assessment Level of Consciousness: Awake, Alert and Appropriate Anesthesia Plan Anesthesia Risk discussed: Yes Anesthesia Plan: Verified ASA Class: III Anesthesia Type: MAC
[2025-03-16] MEDS: LACTATED RINGERS 1000ML 1,000 ML 50 ML IV (14:31)
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
[2025-03-16 14:59] VITALS: BP 93/47; PULSE 61; RESP 16; TEMP 36.4; O2SAT 99
[2025-03-16 15:09] VITALS: BP 90/52; PULSE 60; RESP 17; TEMP 36.4; O2SAT 99
[2025-03-16 15:19] VITALS: BP 134/59; PULSE 60; RESP 18; TEMP 36.4; O2SAT 100
[2025-03-16 15:29] VITALS: BP 120/60; PULSE 61; RESP 18; TEMP 36.4; O2SAT 98
== END 2025-03-16 15:29 | disposition home or self-care (01) ==
PROVIDERS: PCP Family Medicine; Visit Provider Internal Medicine Gastroenterology
PROC: 0DJD8ZZ Inspection of Lower Intestinal Tract, Via Natural or Artificial Opening Endoscopic (ICD-10-PCS; CPT 45378; principal; 2025-03-16 09:30)
DX: Z12.11 Encounter for screening for malignant neoplasm of colon (principal); D12.3 Benign neoplasm of transverse colon; K64.1 Second degree hemorrhoids; Z86.0100 Personal history of colon polyps, unspecified; I11.9 Hypertensive heart disease without heart failure; Z95.0 Presence of cardiac pacemaker; I25.10 Atherosclerotic heart disease of native coronary artery without angina pectoris; F41.9 Anxiety disorder, unspecified; F32.A Depression, unspecified; I77.9 Disorder of arteries and arterioles, unspecified; Z87.891 Personal history of nicotine dependence; Z79.890 Hormone replacement therapy; Z79.899 Other long term (current) drug therapy; Z79.01 Long term (current) use of anticoagulants
CPT/HCPCS: 45385; J2003; J2704; J7120